=== PATIENT | female | born 1970 | race Caucasian/White ===

== ENCOUNTER → 2018-06-11 | Outpatient (CLI) | payer MEDICARE | LOC: MHCPAIN 14:41 | DX: G89.29 Other chronic pain (principal); M47.817 Spondylosis without myelopathy or radiculopathy, lumbosacral region; M53.3 Sacrococcygeal disorders, not elsewhere classified; M79.2 Neuralgia and neuritis, unspecified | CPT/HCPCS: G0463 ==